=== PATIENT | female | born 1995 | race Caucasian/White ===

== ENCOUNTER 2018-06-16 05:49 | Day surgery (SDC) | payer OTHER ==
[2018-06-16] MEDS ORDERED: MIDAZOLAM 1 MG/ML 2 ML INJ ×2 (07:57)
[2018-06-16] MEDS ORDERED: FENTAnyl 50 MCG/ML VIAL (07:57)
== END 2018-06-16 10:27 | disposition home or self-care (01) ==
LOC: GIL 05:49
DX: K31.9 Disease of stomach and duodenum, unspecified (principal)
CPT/HCPCS: 43239; 84703; 88305; 88312